=== PATIENT | female | born 1995 | race Caucasian/White ===

== ENCOUNTER 2017-09-22 21:28 | Outpatient (CLI) | payer BC, SELFPAY ==
[2017-09-22 21:43] VITALS: BMI 25.6
[2017-09-22 22:09] VITALS: BP 120/62; PULSE 95; RESP 17; TEMP 36.4; O2SAT 100; BMI 25.6
[2017-09-22 22:16] LABS: Microscopic, Urine URINE MICROSCOPIC (MICROSCOPIC)
[2017-09-22 22:18] LABS: Appearance,Urine SL CLOUDY (Clear); Bilirubin,Urine Negative (Negative); Blood, Urine TRACE-I (Negative); Color,Urine YELLOW (Yellow); Glucose,Urine (UA) Negative (Negative); Ketones,Urine Negative (Negative); Leukocyte Esterase,Urine 1+ (Negative); Nitrate,Urine Negative (Negative); Protein,Urine Negative (Negative)
[2017-09-22 22:26] LABS: Amphetamine/Metha Screen,Urine Negative ng/mL (<1000); Barbiturates Screen,Urine Negative ng/mL (<200); Benzodiazepines Screen,Urine Negative ng/mL (200); Cannabinoid Screen,Urine Negative ng/mL (<50); Cocaine Screen,Urine Negative ng/g (<300); Methadone Screen,Urine Negative ng/mL (<300); Opiate Screen,Urine Negative ng/mL (<300); Phencyclidine Screen,Urine Negative ng/mL (<25)
[2017-09-22 22:37] VITALS: BP 120/62; PULSE 95; RESP 18; TEMP 36.4
[2017-09-22 22:39] LABS: Amorphous Sediment,Urine 1+ /lpf; Bacteria,Urine 2+ /lpf; Mucus,Urine 1+ /lpf; Squamous Epithelial Cell,Urine TNTC #/hpf (0-5)
[2017-09-22 23:07] LABS: Fetal Fibronectin (Rapid) Negative (Negative)
== END 2017-09-22 23:10 | disposition home or self-care (01) ==
LOC: OBOUT 21:32 → OB 21:34
PROVIDERS: PCP Pediatrics; Visit Provider Obstetrics & Gynecology
DX: O26.853 Spotting complicating pregnancy, third trimester (principal); Z3A.29 29 weeks gestation of pregnancy; R10.84 Generalized abdominal pain
CPT/HCPCS: 59025; 80305; 81001; 82731; 87086